=== PATIENT | male | born 1995 | race Hispanic/Latino ===

== ENCOUNTER 2018-11-29 12:00 | Emergency (ER) | payer BC, OTHER ==
[2018-11-29 12:07] VITALS: BMI 22.1
[2018-11-29 12:14] VITALS: RESP 18; TEMP 99.2
[2018-11-29 13:17] LABS: BASO # 0.03 K/mm3 (0.0-2.0); BASO % 0.3 % (0.0-3.0); EOS # 0.1 (0.0-0.7); EOS % 0.7 % (1.5-5.0); HEMOGLOBIN 15.1 g/dL (14.0-18.0); LYMPH # 1.9 (1.2-3.4); LYMPH % 18.2 % (22.0-35.0); MEAN CELL VOLUME 91.3 fl (80.0-105.0); MEAN CORPUSCULAR HEMOGLOBIN 31.4 pg (25.0-35.0); MEAN CORPUSCULAR HGB CONC 34.4 g/dl (31.0-37.0); MEAN PLATELET VOLUME 10.6 fl (7.0-11.0); MONO # 1.2 (0.1-0.6); MONO % 11.2 % (1.0-6.0); RBC 4.81 10^6/uL (3.5-6.1); WHITE BLOOD COUNT 10.7 10^3/uL (4.5-11.0)
[2018-11-29 13:22] LABS: ALB/GLOB RATIO 1.2 (1.1-1.8); ALBUMIN 4.2 g/dL (3.0-4.8); ALT/SGPT 33 U/L (7-56); AST/SGOT 23 U/L (17-59); BLOOD UREA NITROGEN 12 mg/dL (7-21); CALCIUM 9.2 mg/dL (8.4-10.5); GFR NON-AFRICAN AMERICAN > 60
--- NOTE | 2018-11-29 13:49 | ED PDOC ---
Arrival/HPI - General Chief Complaint: Abnormal Skin Integrity Time Seen by Provider: 11/29/18 12:16 Historian: Patient - History of Present Illness Narrative History of Present Illness (Text): 11/29/18 13:49 23-year-old male presents today with a 2-day history of abscess to the left groin. Patient denies fevers or chills. Patient is complaining of pain to the abscess site. Patient denies testicular pain. Denies urinary symptoms. Patient denies abdominal pain. No nausea vomiting diarrhea or constipation. no medications taken for pain. no other complaints. Past Medical History - Provider Review Nursing Documentation Reviewed: Yes - Travel History Have you recently traveled outside [place] w/in the past 3 mons?: No - Tetanus Immunization Tetanus Immunization: Up to Date - Past Medical History Past Medical History: No Previous - Psychiatric Hx Depression: No Hx Emotional Abuse: No Hx Physical Abuse: No Hx Substance Use: No - Surgical History Hx Orthopedic Surgery: Yes (R WRIST) - Suicidal Assessment Feels Threatened In Home Enviroment: No Family/Social History - Physician Review Nursing Documentation Reviewed: Yes Family/Social History: Unknown Family HX Smoking Status: Current Some Days Smoker Hx Alcohol Use: No Hx Substance Use: No Allergies/Home Meds Allergies/Adverse Reactions: Allergies No Known Allergies Allergy (Verified 11/29/18 12:07) Review of Systems - Review of Systems Constitutional: absent: Fatigue, Fevers Respiratory: absent: SOB, Cough Cardiovascular: absent: Chest Pain, Palpitations Gastrointestinal: absent: Abdominal Pain, Nausea, Vomiting Genitourinary Male: absent: Dysuria, Frequency, Hematuria Musculoskeletal: absent: Arthralgias, Back Pain Skin: Abscess Neurological: absent: Headache, Dizziness Psychiatric: absent: Anxiety, Depression Physical Exam Vital Signs Reviewed: Yes Vital Signs Temp Pulse Resp BP Pulse Ox 11/29/18 12:08 99.2 F 101 H 18 119/81 97 Temperature: Afebrile Blood Pressure: Normal Pulse: Tachycardic Respiratory Rate: Normal Appearance: Positive for: Well-Appearing, Non-Toxic, Comfortable Pain Distress: None Mental Status: Positive for: Alert and Oriented X 3 - Systems Exam Head: Present: Atraumatic Mouth: Present: Moist Mucous Membranes Neck: Present: Normal Range of Motion Respiratory/Chest: Present: Clear to Auscultation, Good Air Exchange. No: Respiratory Distress, Accessory Muscle Use Cardiovascular: Present: Regular Rate and Rhythm, Normal S1, S2. No: Murmurs Abdomen: No: Tenderness, Distention, Peritoneal Signs, Rebound, Guarding Genitourinary Male: Present: Other (chaparoned by dr. umana). No: Normal External Genitalia (there is a 2cm x4cm area of fluctuance noted to the left groin just adjacent to the scrotum; NO scrotal erythema. there is small area of surrounding induration. ), Penile Discharge, Testicle Tenderness, Penile Swelling, Masses, Hernias, Testicle Swelling Back: Present: Normal Inspection Neurological: Present: GCS=15 Skin: Present: Warm, Dry, Normal Color Psychiatric: Present: Alert, Oriented x 3 Medical Decision Making ED Course and Treatment: 11/29/18 13:53 23yr old male with abscess to left groin x 2 days. cbc; wnl cmp; wnl blood cultures pending. ultrasound: ADDENDUM: Addendum. Additional images were obtained of the left- sided superficial abscess. On ultrasound this measures 2.78 by 4.07 x 1.20 cm. This appears just beneath the skin surface superficially. This was discussed with Vidhi Jarvis at 2:40 p.m. [ Addendum Report Added by Augustine Gaming MD at 11/29/2018 14:42:47 ] Date of service: 11/29/2018 HISTORY: left sided scrotal abscess/cellulitis TECHNIQUE: Realtime sonography through the scrotum with color and doppler flow. COMPARISON: None Available. FINDINGS: RIGHT TESTICLE: Measures 4.58 x 2.18 x 2.40 cm. Normal echotexture and flow. RIGHT EPIDIDYMIS: Epididymal head measures 0.86 x 0.75 x 0.91 cm. Grossly unremarkable appearance with normal flow. LEFT TESTICLE: Measures 5.07 x 2.59 x 3.19 cm. Normal echotexture and flow. LEFT EPIDIDYMIS: Epididymal head measures 1.08 x 0.57 x 1.17 cm. Grossly unremarkable appearance with normal flow. HYDROCELE: Small bilateral VARICOCELE: Bilateral OTHER FINDINGS: Multiple superficial skin nodules are seen on the right side measuring approximately 1 cm in diameter each. Etiology uncertain IMPRESSION: Multiple superficial skin nodules are seen on the right side measuring approxima tely 1 cm in diameter each. Etiology uncertain no evidence of torsion pt was seen and evaluated by dr. umana; I and D performed; pt reassessment; pt is non toxic well appearing; no distress. stable vitals. Case was discussed with Dr. Newton Aldana in depth. He will see the patient tomorrow in the office. He has advised the patient to call his cell phone tonight To schedule an appointment for tomorrow All results discussed in depth with the patient. He was advised to call Dr. Jovan mejias to schedule an appointment for tomorrow. Patient was advised to return in 2 days for packing removal. Patient was advised to take antibiotics as prescribed and return immediately if symptoms worsen persist or if new concerning symptoms develop Patient verbalizes understanding of discharge instructions and need for immediate followup. All aspects of this case were discussed the attending of record. impression; abscess, groin Motrin one tablet every 6 hours as needed for pain Bactrim DS: One tablet twice daily x7 days Keflex; 1 capsule 4 times daily x 7 days. Warm compresses and warm soaks frequently Return in 2 days for packing removal and wound check Follow up with the urologist tomorrow. Follow up with the surgeon within the next 2 days. Return immediately if symptoms worsen persist or if new symptoms develop: High fevers, increasing pain, increasing redness, swelling or if any other concerning symptoms develop. - Lab Interpretations Lab Results: Total Bilirubin 0.7 mg/dL (0.2-1.3) 11/29/18 12:55 AST 23 U/L (17-59) 11/29/18 12:55 ALT 33 U/L (7-56) 11/29/18 12:55 Alkaline Phosphatase 56 U/L (38-126) 11/29/18 12:55 Total Protein 7.6 g/dL (5.8-8.3) 11/29/18 12:55 Albumin 4.2 g/dL (3.0-4.8) 11/29/18 12:55 Globulin 3.4 gm/dL 11/29/18 12:55 Albumin/Globulin Ratio 1.2 (1.1-1.8) 11/29/18 12:55 - RAD Interpretation Radiology Orders: 11/29/18 12:35 TESTES DUPLEX COMPLETE [US] Stat - Medication Orders Current Medication Orders: Discontinued Medications Ketorolac Tromethamine (Toradol) 30 mg IVP STAT STA Stop: 11/29/18 12:36 Last Admin: 11/29/18 13:02 Dose: 30 mg MAR Pain Assessment Document 11/29/18 13:02 CD (Rec: 11/29/18 13:04 CD [email or web address] Pain Reassessment Is this a pain reassessment? No Sleep Is patient sleeping during reassessment? No Presence of Pain Presence of Pain Yes Pain Scale Used Protocol: PSCALES Pain Scale Used Numeric Location Left, Right or Bilateral Left Pain Location Body Site Groin Description Intensity of Pain at present 7 Pain Behavior Withdrawal from Touch Aggravating Factors Exercise/Activity IVP Administration Document 11/29/18 13:02 CD (Rec: 11/29/18 13:04 CD [email or web address]) Charges for Administration # of IVP Administrations 1 Procedures - Incision and Drainage Site: left groin/scotal wall Blade Size: 11 I & D Procedure: sterile drapes applied, gauze wick placed Progress: Left groin/scrotal wall area prepped/cleaned using sterile technique; 2cc lidocaine 1% injected locally over the central fluctuance. small 1/4in incision made over central flutuance, moderate amount of purulent discharge released. Quarter inch gauze sterile packing placed. Dressing applied. Patient tolerated the procedure well. No complications. Disposition/Present on Arrival - Present on Arrival Any Indicators Present on Arrival: No History of DVT/PE: No History of Uncontrolled Diabetes: No Urinary Catheter: No History of Decub. Ulcer: No History Surgical Site Infection Following: None - Disposition Have Diagnosis and Disposition been Completed?: Yes Diagnosis: Abscess of groin, left, Scrotal wall abscess Disposition: HOME/ ROUTINE Disposition Time: 13:55 Patient Plan: Discharge Condition: GOOD Discharge Instructions (ExitCare): Abscess Incision and Drainage, Boil (DC) Additional Instructions: Motrin one tablet every 6 hours as needed for pain Bactrim DS: One tablet twice daily x7 days Keflex; 1 capsule 4 times daily x 7 days. Warm compresses and warm soaks frequently Return in 2 days for packing removal and wound check Follow up with the urologist tomorrow. Follow up with the surgeon within the next 2 days. Return immediately if symptoms worsen persist or if new symptoms develop: High fevers, increasing pain, increasing redness, swelling or if any other concerning symptoms develop. Prescriptions: Cephalexin [Keflex] 500 mg PO QID #28 capsule Ibuprofen [Motrin] 600 mg PO Q6H PRN #20 tab PRN Reason: pain/fever reduction Sulfamethoxazole/Trimethoprim [Bactrim DS 800 mg-160 mg] 1 tab PO BID #14 tab Referrals: Lynn Cheng MD [Primary Care Provider] - Follow up with primary Newton Aldana MD [Staff Provider] - Follow up with primary Forms: [employer] (Italian), WORK NOTE
--- NOTE | 2018-11-29 14:33 | US ---
Date of service: 11/29/2018 HISTORY: left sided scrotal abscess/cellulitis TECHNIQUE: Realtime sonography through the scrotum with color and doppler flow. COMPARISON: None Available. FINDINGS: RIGHT TESTICLE: Measures 4.58 x 2.18 x 2.40 cm. Normal echotexture and flow. RIGHT EPIDIDYMIS: Epididymal head measures 0.86 x 0.75 x 0.91 cm. Grossly unremarkable appearance with normal flow. LEFT TESTICLE: Measures 5.07 x 2.59 x 3.19 cm. Normal echotexture and flow. LEFT EPIDIDYMIS: Epididymal head measures 1.08 x 0.57 x 1.17 cm. Grossly unremarkable appearance with normal flow. HYDROCELE: Small bilateral VARICOCELE: Bilateral OTHER FINDINGS: Multiple superficial skin nodules are seen on the right side measuring approximately 1 cm in diameter each. Etiology uncertain IMPRESSION: Multiple superficial skin nodules are seen on the right side measuring approximately 1 cm in diameter each. Etiology uncertain No evidence of torsion
[2018-11-29] MEDS ORDERED: Lidocaine 1% Inj (20ml) ONE (15:52)
[2018-11-29] MEDS ORDERED: Tmp-Smz 800 mg-160 mg DS Tab PO STA (16:13)
[2018-11-29 16:59] VITALS: BP 137/72; PULSE 80; O2SAT 98
== END 2018-11-29 17:03 | disposition home or self-care (01) ==
LOC: ED 12:00
DX: L02.214 Cutaneous abscess of groin (principal); N49.2 Inflammatory disorders of scrotum
CPT/HCPCS: 10060; 80053; 85025; 87040; 93975; 96374; 99282; J1885